=== PATIENT | female | born 1965 | race American Indian/Alaskan Native ===

== ENCOUNTER 2017-06-02 12:25 | Emergency (ER) | payer MEDICAID ==
[2017-06-02] MEDS ORDERED: NORCO 5/325 PO ONE (15:51)
--- NOTE | 2017-06-02 15:56 | Emergency Department Report ---
HPI - General Chief Complaint: Extremity Problem,Nontraumatic Time Seen by Provider: 06/02/17 15:25 - HPI HPI: She is a 51-year-old female with a history of the hypertension controlled with medication presents to the ED complaining of left thumb swollen and red and pain 4 days. Patient states 3 days ago swelling got worse around her nail bed. Patient states she did not injure the arm or hand against anything. Patient states she does not bite her nails. She denies fevers chills/nausea/vomiting/abdominal pain. Patient states that she is out of her blood pressure medication and will be picking in the from the pharmacy tomorrow. ED Past Medical Hx - Past Medical History Previous Medical History?: Yes Hx Hypertension: Yes Hx Heart Attack/AMI: No Hx Congestive Heart Failure: No Hx Diabetes: No Hx Deep Vein Thrombosis: No Hx GERD: Yes Hx Liver Disease: No Hx Renal Disease: No Hx Sickle Cell Disease: No Hx Seizures: No Hx Psychiatric Treatment: Yes (anxiety) Hx Asthma: No Hx COPD: No Hx Tuberculosis: No Hx HIV: No Additional medical history: Pancreatitis- 09/23 and 11/23 r/t ETOH - Surgical History Hx Coronary Stent: No Hx Open Heart Surgery: No Hx Pacemaker: No Hx Internal Defibrillator: No Hx Cholecystectomy: Yes Hx Appendectomy: No Hx Breast Surgery: No Additional Surgical History: C-sections - Social History Smoking Status: Never Smoker Substance Use Type: Alcohol - Medications Home Medications: Home Medications Medication Instructions Recorded Confirmed Last Taken Type Folic Acid [Folvite] 1 mg PO QDAY #30 tablet 12/03/14 01/13/16 01/30/15 Rx Pantoprazole [Protonix TAB] 40 mg PO QDAY #30 tablet 12/03/14 01/13/16 01/30/15 Rx amLODIPine [Norvasc] 10 mg PO DAILY #30 tablet 12/03/14 01/13/16 01/31/15 05:00 Rx diphenhydrAMINE [Benadryl CAP] 50 mg PO Q8HR PRN #20 capsule 10/18/15 01/13/16 Unknown Rx HYDROcodone/APAP 5-325 [[place] 1 - 2 each PO Q4HR PRN #20 tablet 01/16/16 Unknown Rx 5-325 mg TAB] Ondansetron [Zofran Oral Liq] 4 mg PO Q4HR #30 ml 01/16/16 Unknown Rx Promethazine [Phenergan] 25 mg [place] Q6HR PRN #4 supp.rect 01/16/16 Unknown Rx Thiamine [Vitamin B-1] 100 mg PO QDAY #30 tablet 01/16/16 Unknown Rx Acetaminophen/Codeine [Tylenol 1 tab PO Q6H PRN #10 tab 06/02/17 Unknown Rx /Codeine # 3 tab] Cephalexin [Keflex] 500 mg PO BID #10 capsule 06/02/17 Unknown Rx Ibuprofen [Motrin] 800 mg PO Q8HR PRN #30 tablet 06/02/17 Unknown Rx ED Review of Systems ROS: Stated complaint: LEFT THUMB INFECTED Other details as noted in HPI Constitutional: denies: chills, fever Eyes: denies: eye pain, eye discharge, vision change ENT: denies: ear pain, throat pain Respiratory: denies: cough, shortness of breath, wheezing Cardiovascular: denies: chest pain, palpitations Endocrine: no symptoms reported Gastrointestinal: denies: abdominal pain, nausea, diarrhea Genitourinary: denies: urgency, dysuria, discharge Musculoskeletal: denies: back pain, joint swelling, arthralgia Skin: denies: rash, lesions Neurological: denies: headache, weakness, paresthesias Psychiatric: denies: anxiety, depression Hematological/Lymphatic: denies: easy bleeding, easy bruising Physical Exam - Physical Exam Vital Signs: Vital Signs 06/02/17 13:05 Temperature 98.6 F Pulse Rate 89 Respiratory 18 Rate Blood Pressure 173/101 O2 Sat by Pulse 100 Oximetry Physical Exam: GENERAL: Alert and oriented x3, no apparent distress, Normal Gait, atraumatic. HEAD: Head is normocephalic and a-traumatic. LUNGS: Symetrical with respiration, CTAB. HEART: S1, S2 present, regular rate and rhythm without murmur, no rubs, no gallops. EXTREMITIES/MUSCULOSKELETAL: No cyanosis, clubbing, rash, lesions or edema. Full ROM bilaterally. UE/LE Pulses 2+ bilaterally. LE and UE 5+ Swollen left thumb, tender to palpation, blanched, SKIN: Warm and dry, No lesions, No ulceration or induration present. ED Course Vital Signs 06/02/17 13:05 Temperature 98.6 F Pulse Rate 89 Respiratory 18 Rate Blood Pressure 173/101 O2 Sat by Pulse 100 Oximetry ED Medical Decision Making - Medical Decision Making 51-year-old female presents with infected paronychia ED course: Patient receives pain medication. Patient positioned appropriately, 4cc lidocaine without epinephrine was used as a digital anesthetic. #11 blade scalpal used for single incision at the nailbed. Copius drainage of pus. Procedure tolerated without complications. Wound dressed with sterile 4x4 guaze and paper tape. Pt tolerated procedure well. Discussed the patient to follow up with primary care physician. 5 days Discussed the patient to change dressing daily. Discussed to take antibiotic completely. Discussed acute wound care prevention of infections. Critical care attestation.: If time is entered above; I have spent that time in minutes in the direct care of this critically ill patient, excluding procedure time. ED Disposition Clinical Impression: Paronychia of finger of left hand, Paronychia of thumb, left Disposition: DC-01 TO HOME OR SELFCARE Is pt being admited?: No Does the pt Need Aspirin: No Condition: Stable Instructions: Paronychia (ED), Acute Wound Care (ED) Additional Instructions: Follow-up with her primary care physician. Prescriptions: Acetaminophen/Codeine [Tylenol /Codeine # 3 tab] 1 tab PO Q6H PRN #10 tab PRN Reason: Pain Cephalexin [Keflex] 500 mg PO BID #10 capsule Ibuprofen [Motrin] 800 mg PO Q8HR PRN #30 tablet PRN Reason: Pain Referrals: [facility] [Outside] - 3-5 Days [facility] [Outside] - 3-5 Days Forms: Accompanied Note, Work/School Release Form(ED)
[2017-06-02] MEDS ORDERED: NORVASC PO ONE (15:59)
[2017-06-02] MEDS ORDERED: XYLOCAINE 1% 20 mL INFILTRATI NR (16:00)
[2017-06-02 17:23] VITALS: BP 148/80
== END 2017-06-02 17:23 | disposition home or self-care (01) ==
LOC: ED 12:25
DX: L03.012 Cellulitis of left finger (principal); I10 Essential (primary) hypertension; K21.9 Gastro-esophageal reflux disease without esophagitis

== ENCOUNTER 2017-10-15 08:26 | Emergency (ER) | payer MEDICAID ==
[2017-10-15 09:03] VITALS: BP 164/100
--- NOTE | 2017-10-15 09:55 | Emergency Department Report ---
ED Rash HPI - HPI Chief Complaint: Skin Rash Stated Complaint: RASH ON ARMS Time Seen by Provider: 10/15/17 09:49 Duration: greater than 7 days Location: Other (generalized) Suspected Cause: Other (scabies) Rash Symptoms: Yes Itching, No Facial Swelling, No Tongue/Oral Swelling, No Breathing Difficulties, No Choking Sensation, No Wheezing/Dyspnea, No Peeling, No Blistering, No Fever, No Lightheaded, No Malaise, No Myalgias Severity: severe Other History: Patient seen and treated in the ED last week for scabies, however the prescribed cream did not alleviate the rash with itching ED Review of Systems ROS: Stated complaint: RASH ON ARMS Other details as noted in HPI Constitutional: denies: chills, fever Eyes: denies: eye pain, eye discharge, vision change ENT: denies: ear pain, throat pain Respiratory: denies: cough, shortness of breath, wheezing Cardiovascular: denies: chest pain, palpitations Gastrointestinal: denies: abdominal pain, nausea, diarrhea Skin: rash (generalized), pruritus (generalized). denies: lesions, change in color, change in hair/nails ED Past Medical Hx - Past Medical History Previous Medical History?: Yes Hx Hypertension: Yes Hx Heart Attack/AMI: No Hx Congestive Heart Failure: No Hx Diabetes: No Hx Deep Vein Thrombosis: No Hx GERD: Yes Hx Liver Disease: No Hx Renal Disease: No Hx Sickle Cell Disease: No Hx Seizures: No Hx Psychiatric Treatment: Yes (anxiety) Hx Asthma: No Hx COPD: No Hx Tuberculosis: No Hx HIV: No Additional medical history: Pancreatitis- 09/23 and 11/23 r/t ETOH - Surgical History Past Surgical History?: Yes Hx Coronary Stent: No Hx Open Heart Surgery: No Hx Pacemaker: No Hx Internal Defibrillator: No Hx Cholecystectomy: Yes Hx Appendectomy: No Hx Breast Surgery: No Additional Surgical History: C-sections - Social History Smoking Status: Never Smoker - Medications Home Medications: Home Medications Medication Instructions Recorded Confirmed Last Taken Type Folic Acid [Folvite] 1 mg PO QDAY #30 tablet 12/03/14 01/13/16 01/30/15 Rx Pantoprazole [Protonix TAB] 40 mg PO QDAY #30 tablet 12/03/14 01/13/16 01/30/15 Rx amLODIPine [Norvasc] 10 mg PO DAILY #30 tablet 12/03/14 01/13/16 01/31/15 05:00 Rx diphenhydrAMINE [Benadryl CAP] 50 mg PO Q8HR PRN #20 capsule 10/18/15 01/13/16 Unknown Rx HYDROcodone/APAP 5-325 [[place] 1 - 2 each PO Q4HR PRN #20 tablet 01/16/16 Unknown Rx 5-325 mg TAB] Ondansetron [Zofran Oral Liq] 4 mg PO Q4HR #30 ml 01/16/16 Unknown Rx Promethazine [Phenergan] 25 mg [place] Q6HR PRN #4 supp.rect 01/16/16 Unknown Rx Thiamine [Vitamin B-1] 100 mg PO QDAY #30 tablet 01/16/16 Unknown Rx Acetaminophen/Codeine [Tylenol 1 tab PO Q6H PRN #10 tab 06/02/17 Unknown Rx /Codeine # 3 tab] Cephalexin [Keflex] 500 mg PO BID #10 capsule 06/02/17 Unknown Rx Ibuprofen [Motrin] 800 mg PO Q8HR PRN #30 tablet 06/02/17 Unknown Rx Ivermectin [Stromectol] 3 mg PO ONCE #6 tab 10/15/17 Unknown Rx diphenhydrAMINE [Benadryl CAP] 25 mg PO Q6HR PRN #20 capsule 10/15/17 Unknown Rx predniSONE [Deltasone] 20 mg PO QDAY #10 tab 10/15/17 Unknown Rx Rash Exam - Exam General: Vital signs noted. No distress. Alert and acting appropriately. HEENT: No Periorbital Edema, No Conjuctival Injection, No Chemosis, No Perioral Edema, No Tongue Edema, No Uvular Edema, No Compromised Airway, No Drooling Lungs: Yes Good Air Exchange (Normal Breath Sounds), No Wheezes, No Ronchi, No Stridor, No Cough, No Labored Respirations, No Retractions, No Use of Accessory Muscles, No Other Abnormal Lung Sounds Skin: Yes Urticarial Rash, Yes Maculopapular Rash (with burrows), No Morbilliform rash, No Bulla(e), No Excoriations, No Weeping, No Tenderness, No Erythema, No Edema, No Encrustations, No Other Other: Positive: Abdomen Normal, Neurologic Normal, Musculoskeletal Normal ED Course Vital Signs 10/15/17 09:01 Temperature 98.1 F Pulse Rate 86 Blood Pressure 164/100 O2 Sat by Pulse 99 Oximetry ED Medical Decision Making - Lab Data Vital Signs 10/15/17 09:01 Temperature 98.1 F Pulse Rate 86 Blood Pressure 164/100 O2 Sat by Pulse 99 Oximetry - Medical Decision Making During the course of ED, all other systems were unremarkable except for documentation in HPI. Patient was prescribed Prednisone, Benadryl and Ivermectin , instructed to wash all linen in hot water, she verbalized understanding - Differential Diagnosis Scabies, Contact Dermatitis Critical care attestation.: If time is entered above; I have spent that time in minutes in the direct care of this critically ill patient, excluding procedure time. ED Disposition Clinical Impression: Scabies exposure Disposition: TO HOME OR SELFCARE Is pt being admited?: No Does the pt Need Aspirin: No Condition: Stable Instructions: Scabies (ED) Additional Instructions: Follow up with the selective referral given at discharge Prescriptions: diphenhydrAMINE [Benadryl CAP] 25 mg PO Q6HR PRN #20 capsule PRN Reason: Itching Ivermectin [Stromectol] 3 mg PO ONCE #6 tab predniSONE [Deltasone] 20 mg PO QDAY #10 tab Referrals: PRIMARY CARE, [Primary Care Provider] - 3-5 Days [facility] [Outside] - 3-5 Days [facility] [Outside] - 3-5 Days Forms: Work/School Release Form(ED) Time of Disposition: 10:01
== END 2017-10-15 10:27 | disposition home or self-care (01) ==
LOC: ED 08:26
DX: B86 Scabies (principal); I10 Essential (primary) hypertension; K21.9 Gastro-esophageal reflux disease without esophagitis; F41.9 Anxiety disorder, unspecified; Z90.49 Acquired absence of other specified parts of digestive tract
CPT/HCPCS: 99282